=== PATIENT | male | born 1995 | race Hispanic/Latino ===

== ENCOUNTER 2023-06-04 07:55 | Observation (INO) | payer SELFPAY ==
[2023-06-04] VITALS (22 sets, daily range): BP systolic 101–140; BP diastolic 54–86
[~2023-06-04] VITALS: Ht 162.6 cm; Wt 72.0 kg
[2023-06-04] MEDS ORDERED: SUCCINYLCHOLINE CHLORIDE 20 MG/ML 10ML VIAL IV ONE (07:59)
[2023-06-04] MEDS ORDERED: ROCURONIUM BROMIDE 10 MG/ML 5ML VIAL IV ONE (07:59)
[2023-06-04] MEDS ORDERED: SUGAMMADEX SODIUM 200 MG/2 ML SDV IV ONE (07:59)
[2023-06-04] MEDS ORDERED: MIDAZOLAM HCL 2 MG/2 ML VIAL IV ONE (07:59)
[2023-06-04] MEDS ORDERED: LIDOCAINE HCL 2% 2ML SDV IV ONE (07:59)
[2023-06-04] MEDS ORDERED: PROPOFOL 200 MG/20 ML VIAL IV ONE (07:59)
[2023-06-04] MEDS ORDERED: ACETAMINOPHEN 1,000 MG/100 ML VIAL IV ONE (07:59)
[2023-06-04] MEDS ORDERED: LACTATED RINGER'S 1,000 ML BAG IV ONE (07:59)
[2023-06-04] MEDS ORDERED: KETOROLAC TROMETHAMINE 30 MG/ML SDV IV ONE (07:59)
--- NOTE | 2023-06-04 10:01 | NUR ---
PT TO ROOM FROM TRIAGE WITH STEADY GAIT
[2023-06-04] MEDS ORDERED: SODIUM CHLORIDE 0.9% 1,000 ML IV STA (10:21)
[2023-06-04] MEDS ORDERED: ONDANSETRON HCl 4 MG/2 ML SDV IV STA (10:21)
[2023-06-04] MEDS ORDERED: KETOROLAC TROMETHAMINE 15 MG/ML SDV IV STA (10:21)
[2023-06-04] MEDS ORDERED: DIATRIZOATE MEGLUMINE & SODIUM 30 ML/BTL BTL PO ONE (10:35)
--- NOTE | 2023-06-04 10:44 | NUR ---
IN ROOM TO MEDICATE PT PER EMAR, VSS, NAD NOTED, CALL LIGHT IN REACH.
[2023-06-04 10:49] LABS: BASO% 0.2 % (0-3); EOS% 0.1 % (0-8); HEMATOCRIT 41.4 % (39.0-50.0); HEMOGLOBIN 13.6 g/dl (14.0-18.0); IMMATURE GRANULOCYTES 0.2 % (0.0-5.0); LYMPH% 4.6 % (15-41); MEAN CELL VOLUME 87.7 fL CALC (80.0-100.0); MEAN CORPUSCULAR HGB 28.8 pG CALC (26.0-32.0); MEAN CORPUSCULAR HGB CONC 32.9 g/dL CAL (32.0-36.0); MONO% 4.4 % (2-13); NEUT# 12.27 thou/uL (1.82-7.42); NEUT% 90.5 % (42-76); RED BLOOD COUNT 4.72 mill/uL (4.70-6.10); RED CELL DISTRI WIDTH 12.6 % (11.5-15.5)
[2023-06-04 10:50] LABS: URINE BLOOD DIPSTICK Negative (NEGATIVE); URINE GLUCOSE - DIPSTICK Negative (NEGATIVE); URINE KETONE 15 mg/dL (NEGATIVE); URINE LEUK ESTERASE Negative (NEGATIVE); URINE NITRITE - DIPSTICK Negative (Negative); URINE PH 7.5 (4.5-8.0); URINE PROTEIN - DIPSTICK Trace mg/dL (NEG-TRACE); URINE SPECIFIC GRAVITY 1.025; URINE UROBILINOGEN - DIPSTICK 0.2 E.U./dL (0.2)
--- NOTE | 2023-06-04 10:54 | NUR ---
IN ROOM TO GIVE PT 1ST DOSE GASTROGRAFIN.
[2023-06-04 10:55] LABS: URINE COLOR Yellow
[2023-06-04 11:08] LABS: ALBUMIN 4.7 g/dL (3.2-5.0); ALKALINE PHOSPHATASE 148 u/l (38-126); ANION GAP 13 (6-22 (CALC)); BILIRUBIN, TOTAL 3.1 mg/dL (0.2-1.3); BUN 6 mg/dL (9-20); BUN/CREATININE RATIO 9 (12-20 (CALC)); CARBON DIOXIDE 23 mmol/l (22-30); CHLORIDE 104 mmol/l (95-108); CREATININE 0.7 mg/dL (0.7-1.3); GFR FOR AFR.AMER. > 60 ML/MIN (>=60 (CALC)); GFR OTHER RACES > 60 ML/MIN (>=60 (CALC)); LIPASE 74 u/l (23-300); POTASSIUM 4.2 mmol/l (3.5-5.1); SGOT/AST 35 u/l (17-59); SODIUM 134 mmol/l (137-146); TOTAL PROTEIN 7.2 g/dL (6.3-8.2)
--- NOTE | 2023-06-04 11:25 | NUR ---
IN ROOM TO HAVE PT DRINK 2ND DOSE GASTROGRAFIN, NAD NOTED, VSS, CALL LIGHT IN REACH.
--- NOTE | 2023-06-04 11:55 | NUR ---
PT GIVEN 3RD DOSE GASTROGRAFIN.
--- NOTE | 2023-06-04 13:07 | NUR ---
PT UP TO BR, AMBULATED WITH STEADY GAIT, NAD NOTED, VSS, CALL LIGHT IN REACH.
--- NOTE | 2023-06-04 13:55 | NUR ---
SPOKE WITH CELIA, NOTIFIED OR, PT WILL HAVE SX FOR ACUTE APPENDICITIS, AT BEDSIDE TO DISCUSS POC WITH PT.
--- NOTE | 2023-06-04 13:59 | NUR ---
PT REPORTS LAST MEAL WAS CHIPS AND A BEER PRIOR TO MIDNIGHT
--- NOTE | 2023-06-04 14:16 | NUR ---
PT LAST KNOW PO INTAKE IS 06/03/23 CHIPS AND BEER PRIOR TO 12 MIDNIGHT.
--- NOTE | 2023-06-04 14:20 | NUR ---
Reassessment of patient completed. No distress noted. PT PLACED GOWN ONLY, ALL BELONGINGS PLACED IN LABLED BAG.
[2023-06-04] MEDS ORDERED: ceFAZolin Sodium 2 GM/VIAL SDV ONE ×2 (14:21→15:46)
[2023-06-04] MEDS ORDERED: SODIUM CHLORIDE 0.9% 10 ML SYR ONE (14:21)
[2023-06-04] MEDS ORDERED: SODIUM CHLORIDE 0.9% 100 ML IV ONE (14:22)
[2023-06-04] MEDS ORDERED: LACTATED RINGER'S 1,000 ML IV ONE (14:22)
--- NOTE | 2023-06-04 14:30 | NUR ---
PT LEFT ER VIA STRETCHER WITH SDC, NAD NOTED, ALL BELONGIGNS SENT WITH PT.
[2023-06-04] MEDS ORDERED: FAMOTIDINE 10MG/ML 2ML SDV IV ONE (14:51)
[2023-06-04] MEDS ORDERED: STERILE WATER FOR IRRIGATION 1,000 ML BTL IR ONE (15:21)
[2023-06-04] MEDS ORDERED: SODIUM CHLORIDE 0.9% 1,000 ML IV ONE (15:21)
[2023-06-04] MEDS ORDERED: oxyCODONE 5MG/ ACETAMINOPHEN 325MG TAB PO PRN (16:00)
[2023-06-04] MEDS ORDERED: SODIUM CHLORIDE 0.9% 1,000 ML IV PRN (16:00)
[2023-06-04] MEDS ORDERED: ONDANSETRON HCl 4 MG/2 ML SDV IV PRN (16:00)
[2023-06-04] MEDS ORDERED: HYDROmorphone HCL 2 MG/AMP IV PRN (16:00)
[2023-06-04] MEDS ORDERED: PIPERACILLIN Sodium-Tazobactam 3.375 GM in SODIUM CHLORIDE 0.9% 100 ML IV SCH (18:00)
[2023-06-04] MEDS ORDERED: KETOROLAC TROMETHAMINE 15 MG/ML SDV IV SCH (18:00)
--- NOTE | 2023-06-04 18:00 | NUR ---
PT ARRIVED TO MED-SURG FLOOR BY STRETCHER WITH OR NURSE. PT ABLE TO MOVE FROM STRETCHER TO BED WITHOUT ASSISTANCE. PT ADMITTED TODAY WITH ACUTE APPENDICITIS AND HAD LAPAROSCOPIC APPENDECTOMY WITH DR. YANG THIS AFERNOON. PT HAS 3 LAP SITES ; DERMABOND. PT NIGERIAN SPEAKING ONLY. OR NURSE AT BEDSIDE TO ASSIST WITH COMMUNICATION. PT DENIES ANY PAIN AT THIS TIME. PT IS A/O. LUNGS CLEAR; ON RA; NO COUGH OR SOB. HEART SOUNDS S1S2. BOWEL SOUNDS ACTIVE. ABDOMEN DISTENDED, LAP SITES CLEAN, NO REDNESS OR DRAINAGE; DERMABOND INTACT. OTHERWISE SKIN W/D/I. PULSES STRONG ALL EXTREMETIES, NO EDEMA. PT GIVEN CALL LIGHT AND INSTRUCTED TO CALL FOR ASSISTANCE BEFORE GETTING UP.
--- NOTE | 2023-06-04 19:00 | NUR ---
PT RESTING NO DISTRESS NOTED DURING ASSESSMENT. ABD WOUNDS X3 FROM LAP APPY. PT REPORTS NO PAIN AT THIS TIME. SCDS ON PT. IV SITE CHECKED AND FLUSHED. CALL LIGHT WITHIN REACH. PLAN OF CARE ONGOING.
--- NOTE | 2023-06-05 | NUR ---
PT SLEEPING NO DISTRESS NOTED ON EXAM. IV SITE CHECKED. CALL LIGHT WITHIN REACH. PLAN OF CARE ONGOING.
[2023-06-05 00:37] VITALS: BP 95/49
[2023-06-05] MEDS ORDERED: KETOROLAC TROMETHAMINE 15 MG/ML SDV ONE (01:31)
[2023-06-05 03:59] VITALS: BP 91/50
--- NOTE | 2023-06-05 04:00 | NUR ---
PT AWAKE WATCHING TV. NO DISTRESS NOTED ON EXAM. PT REPORTS NO PAIN AT THIS TIME. IV SITE CHECKED AND FLUSHED. CALL LIGHT WITHIN REACH. PLAN OF CARE ONGOING. SURGICAL WOUNDS CHECKED CLEAN AND INTACT.
[2023-06-05] MEDS ORDERED: SODIUM CHLORIDE 0.9% 1,000 ML IV ONE (04:13)
[2023-06-05 04:48] VITALS: BP 91/50
[2023-06-05 05:10] LABS: BASO% 0.5 % (0-3); EOS% 0.6 % (0-8); HEMATOCRIT 36.4 % (39.0-50.0); HEMOGLOBIN 11.7 g/dl (14.0-18.0); IMMATURE GRANULOCYTES 0.2 % (0.0-5.0); LYMPH% 21.6 % (15-41); MEAN CELL VOLUME 91.9 fL CALC (80.0-100.0); MEAN CORPUSCULAR HGB 29.5 pG CALC (26.0-32.0); MEAN CORPUSCULAR HGB CONC 32.1 g/dL CAL (32.0-36.0); MONO% 7.5 % (2-13); NEUT# 4.36 thou/uL (1.82-7.42); NEUT% 69.6 % (42-76); RED BLOOD COUNT 3.96 mill/uL (4.70-6.10)
[2023-06-05 05:17] LABS: ALKALINE PHOSPHATASE 94 u/l (38-126); ANION GAP 7 (6-22 (CALC)); BILIRUBIN, TOTAL 3.5 mg/dL (0.2-1.3); BUN 6 mg/dL (9-20); BUN/CREATININE RATIO 7 (12-20 (CALC)); CARBON DIOXIDE 26 mmol/l (22-30); CHLORIDE 110 mmol/l (95-108); CREATININE 0.8 mg/dL (0.7-1.3); GFR FOR AFR.AMER. > 60 ML/MIN (>=60 (CALC)); GFR OTHER RACES > 60 ML/MIN (>=60 (CALC)); POTASSIUM 3.8 mmol/l (3.5-5.1); SGOT/AST 26 u/l (17-59); SODIUM 139 mmol/l (137-146)
[2023-06-05 05:19] LABS: ALBUMIN 3.5 g/dL (3.2-5.0); TOTAL PROTEIN 5.7 g/dL (6.3-8.2)
[2023-06-05] MEDS ORDERED: [UNRECOGNIZED DRUG - OTHER] IV ONE (05:22)
[2023-06-05] MEDS ORDERED: SODIUM CHLORIDE 0.9% 0 ML IV ONE (05:23)
[2023-06-05] MEDS ORDERED: PIPERACILLIN Sodium-Tazobactam 3.375 GM VIAL IV ONE (05:38)
[2023-06-05] MEDS ORDERED: SODIUM CHLORIDE 0.9% 100 ML IV ONE (05:39)
[2023-06-05 07:14] VITALS: BP 100/59
--- NOTE | 2023-06-05 08:10 | NUR ---
PATIENT ALERT AND ORINATED X3, IN HIGH SEMI GONZALES POSTION WATCHING TV, ROOM AIR, 20 ON LAC RUNNING AT 125 NS, IV SITE CLEAR AND INTACT WITH NO ISSUES, NO VISUAL SIGNS OF DISCOMFORT, LUNGS WAS CLEAR AND UNLABORED AND EVEN BREATHING, SURGICAL SITES WAS CLEAN AND INTACT WITH NO SIGNS OF DRAINAGE OR BLEEDING NOTICED. ACTIVE BOWEL SOUNDS, MEDICATIONS AND PLAN OF CARE WAS REVIEWED, EDUCATED PATIENT ON THE IMPORTANCE OF MOVING AROUND AND AMBULATING TODAY,VERBALIZED UNDERSTANDING, SED ON PATIENT LOWER LEGS, CALL LIGHT WITHIN REACH, VERBALIZED UNDERSTANDINGH ON HOW TO USE, BED IN LOWEST POSTION, SAFTEY MEASURES IN PLACE
[2023-06-05] MEDS ORDERED: LIDOcaine HCl 1% (Local Anesth.) 20 ML VIAL ONE (08:30)
--- NOTE | 2023-06-05 11:31 | NUR ---
ASSITED PATIENT WITH WALKING DOWN HALLWAY, PATIENT STATED VERY LITTLE PAIN AT THE MOMENT
[2023-06-05] MEDS ORDERED: KETOROLAC TROMETHAMINE 15 MG/ML SDV IV SCH (12:00)
--- NOTE | 2023-06-05 12:00 | NUR ---
PATIENT ALERT AND ORENTED X3 IN SEMI GONZALES POSTION WATCHING TV EATING LUNCH, NO VISUAL SIGNS OF DISTRESS OR DISCOMFORT, IV SITE RUNNING PIPERACILLIN,IV SITE CLEAN AND INTACT, BREATHING UNLABORED AND EVEN, NO COMPLAINTS AT THIS TIME, PERSONAL ITEMS ARE WITHIN REACH, CALL LIGHT WITHIN REACH, VERBALIZED UNDERSTANDING ON HOW TO USE, BED IN LOWEST POSTION, SAFTEY MEASURES IN PLACE
[2023-06-05] MEDS ORDERED: SODIUM CHLORIDE 0.9% 1,000 ML IV PRN (12:05)
[2023-06-05] MEDS ORDERED: oxyCODONE 5MG/ ACETAMINOPHEN 325MG TAB PO PRN (12:05)
[2023-06-05] MEDS ORDERED: ONDANSETRON HCl 4 MG/2 ML SDV IV PRN (12:05)
[2023-06-05] MEDS ORDERED: HYDROmorphone HCL 2 MG/AMP IV PRN (12:05)
[2023-06-05] MEDS ORDERED: PERCOCET 5/325M1 TAB PO (12:29)
--- NOTE | 2023-06-05 13:15 | NUR ---
REVIEWED PATIENT DISCHARGE INSTRUCTION WITH THE HELP OF A CAPTAIN ASSISTANT, INFORMED PATIENT NO HEAVY LIFTING FOR THE NEXT 4-6 WEEKS, MAY SHOWER, INFORMED PATIENT ON WHICH PHARMACY MEDICATION IS AT, AND TO FOLLOW UP WITH PROVIDER IN THE NEXT 7-10 DAYS
--- NOTE | 2023-06-05 13:35 | NUR ---
IV site discontinued, cath intact. No edema , no redness, voices no discomfort. Discharge instructions given. Patient verbalizes understanding of same. Discharged in stable condition via Ambulatory to Home with *Other. All belongings sent with pt.
[2023-06-05] MEDS ORDERED: PIPERACILLIN Sodium-Tazobactam 3.375 GM in SODIUM CHLORIDE 0.9% 100 ML IV SCH (18:00)
== END 2023-06-05 13:35 | disposition home or self-care (01) | DRG 399 ==
LOC: ED 07:55 → ORM 14:09 → ED 14:09 → MS2 15:58 → ORM 15:58 → MS2 17:45 → ORM 17:45 → ED 06-05 09:22 → ORM 06-05 09:28 → MS2 06-05 13:35
PROVIDERS: Emergency Medicine; ADMIT Surgery; ATTEND Surgery
PROC: 0DTJ4ZZ Resection of Appendix, Percutaneous Endoscopic Approach (ICD-10-PCS; principal; 2023-06-04)
DX: K35.30 Acute appendicitis with localized peritonitis, without perforation or gangrene (principal); Z20.822 Contact with and (suspected) exposure to COVID-19
CPT/HCPCS: J0131; J0690; Q9967